=== PATIENT | male | born 1965 | race Caucasian/White ===

== ENCOUNTER 2019-08-15 15:17 | Inpatient (IN) | payer OTHER ==
[~2019-08-15] VITALS: Ht 182.9 cm; Wt 95.4 kg
[2019-08-15] MEDS ORDERED: SODIUM CHLORIDE 0.9% 1,000 ML IV ONE (15:52)
[2019-08-15] MEDS ORDERED: SODIUM CHLORIDE 0.9% 1,000ML IVBOLUS ONE ×2 (16:00→18:00)
[2019-08-15] MEDS ORDERED: SODIUM CHLORIDE FLUSH 10ML SYR IVF ONE (16:00)
[2019-08-15] MEDS ORDERED: ONDANSETRON 2MG/ML, 2ML IVPush ONE (16:00)
[2019-08-15] MEDS ORDERED: THIAMINE 100 MG in SODIUM CHLORIDE 0.9% 50 ML IVPB ONE (16:30)
[2019-08-15 16:32] LABS: ALBUMIN 3.7 g/dL (3.4-5.0); CALCIUM 8.9 mg/dL (8.5-10.1)
[2019-08-15] MEDS ORDERED: LORazepam 2 MG/ML, 1ML ONE ×6 (16:34→20:47)
[2019-08-15 16:36] LABS: ALANINE AMINOTRANSFERASE 233 U/L (12-78); ALKALINE PHOSPHATASE 298 U/L (45-117); BILIRUBIN,TOTAL 2.3 mg/dL (0.2-1.0); CREATININE 1.31 mg/dL (0.7-1.3); TOTAL PROTEIN 7.6 g/dL (6.4-8.2)
[2019-08-15 16:41] LABS: ANION GAP 21 mmol/L (5-15); CHLORIDE 96 mmol/L (98-107)
[2019-08-15] MEDS: LORazepam 2 MG/ML, 1ML IVPush PRN ×8 (16:45→19:35)
--- NOTE | 2019-08-15 16:52 | NUR ---
placed on seizure pads, increased tremors, Dr Tan @ bedside, states was ok to give 2mg of Ativan @ a time IV, placed on oxy mask, seizure precautions
--- NOTE | 2019-08-15 17:01 | NUR ---
seizure pads placed on bed, placed on 15l o2 mask, pt appears more calm, cool rag applied to forehead, IV thiamine initiated
[2019-08-15 17:05] LABS: MEAN CORPUSCULAR HEMOGLOBIN 32.3 pg (27.5-34.5); MEAN CORPUSCULAR HGB CONC 33.7 g/dL (33.2-36.2); MEAN CORPUSCULAR VOLUME 95.8 fL (81-97); MEAN PLATELET VOLUME 9.4 fL (7.4-10.4); PLATELET COUNT 176 x10^3/uL (130-400); RED BLOOD COUNT 4.52 x10^6/uL (4.38-5.82); RED CELL DISTRIBUTION WIDTH 18.1 % (9.4-14.8)
[2019-08-15 17:08] LABS: MD YES
--- NOTE | 2019-08-15 17:20 | NUR ---
TRANSPORTED TO TRAUMA ROOM, REPORT GIVEN TO BRUNA BRYSON, MEDICATED WITH ATIVAN 1MG PRIOR TO TRANSFER
[2019-08-15 17:36] LABS: LYMPH#(MANUAL) 0.07 x10^3/uL (1-3.4); LYMPHS% (MANUAL) 1 % (22-44); MONOS#(MANUAL) 0.43 x10^3/uL (0.3-2.7); MONOS% (MANUAL) 6 % (2-9); SEGS% (MANUAL) 93 % (42-75)
[2019-08-15 17:37] LABS: <PLATELET ESTIMATE> ADEQUATE; <PLT MORPHOLOGY> NORMAL PLT MORPH; ANISOCYTOSIS 1+
--- NOTE | 2019-08-15 17:39 | NUR ---
LATE ENTRY FOR 1714. PT MOVED TO TRAUMA ROOM3 FROM 24, SBAR RPT REC'D AND PT CARE ASSUMED. PT INCONTINENT OF LIQUID BROWN STOOL AT SOMETIME TODAY, DRIED STOOL CLEANED FROM BART AREA AND ALL DOWN HIS LEGS. CLEAN LINNENS PLACED AND CLEAN GOWN. PT WITH INCREASED TREMMORS WITH ANY ACTIVITY OR STIMULATION BUT TREMMORS DECREASE ONCE STIMULI IS REMOVED. PT ON ALL MONITORS AND PULSE OX 95-99%, 02 DECREASED FROM 10L OXYMASK TO 6L OXY MASK. PT TOLLERATING. TP BELONIGINGS PLACED IN BELONGINGS BAG. (GLASSES, WALLET, KEYS, NECKLACE, RING, CELL PHONE ALL PLACED IN SEPERATE BAG WHICH WAS THEN PLACED IN THE BAG WITH HIS SOILED CLOTHES. PT HAS EARING IN EACH LOBE WHICH I LEFT IN PLACE) PT IS VERY PLEASANT AND COOPERATIVE. POC DISCUSSED AND QUESTIONS ANSWERED.
[2019-08-15 17:53] LABS: INTERNATIONAL NORMALIZED RATIO 1.06 (0.93-1.1); PROTHROMBIN TIME 11.2 Seconds (9.6-11.5)
--- NOTE | 2019-08-15 18:10 | NUR ---
PT CIWA SCORE = 18, MEDICATED WITH 1MG ATIVAN WITH EFFECT.
--- NOTE | 2019-08-15 18:25 | NUR ---
DR GARCIA AT BEDSIDE, PT ASSESSMENT REVIEWED. RESP EVEN NON-LABORED AND PT MAINTIANING SP02 GREATER THAN 94% ON 6L OXY MASK. AT THIS TIME PLAN FOR PT TO ADMIT TO [facility] ON CIWA PROTOCOL
[2019-08-15] MEDS ORDERED: SODIUM CHLORIDE FLUSH 10ML SYR IVF PRN (18:30)
--- NOTE | 2019-08-15 18:59 | NUR ---
Pt bedside report from Jumana rn. This rn to assume care of pt. Pt resting comfortably on gurney. Moderate visible tremors noted. Pt c/o tactile stimulation/hallucinations. States itchiness on face "it kind of feels like something is crawling on my skin." Has a moderate RICK. Skin PWD octavio. A+Ox4. IV NS infusing appropriately according to emar. All monitoring remains intact. Pt htn and tachycardic, aware and this is baseline from admit to ed tonight. Pt given 1 mg ativan per day shift rn at shift change. WCTM pt condition.
--- NOTE | 2019-08-15 19:19 | NUR ---
Hospitalist at bedside.
[2019-08-15] MEDS ORDERED: LACTATED RINGERS 1,000 ML IV SCH (19:30)
[2019-08-15] MEDS ORDERED: morphine SULFATE 10 MG/ML, 1ML IVPush PRN (19:30)
[2019-08-15] MEDS ORDERED: PROMETHAZINE 25 MG/ML, 1ML IM PRN (19:30)
[2019-08-15] MEDS ORDERED: ONDANSETRON 2MG/ML, 2ML IV PRN (19:30)
[2019-08-15] MEDS ORDERED: DIAZEPAM 10 MG TABLET PO SCH (19:30)
[2019-08-15] MEDS ORDERED: LORazepam 1MG TABLET PO PRN ×3 (19:30)
[2019-08-15] MEDS ORDERED: LORazepam 2 MG/ML, 1ML IV PRN ×3 (19:30)
[2019-08-15] MEDS ORDERED: FOLIC ACID 5 MG/ML IM ONE (19:30)
--- NOTE | 2019-08-15 19:38 | NUR ---
Pt given more ativan for increasing anxiety and acutely increased tremors. Pt immediately reactive to ativan and appears more comfortable.
--- NOTE | 2019-08-15 20:11 | NUR ---
Pt states needing to go to the rr. Offered bedpan and refused. Adamant on trying bedside commode. This rn attempted to assist pt to commode. Pt at side of bed w/ severe tremors and unable to bear weight due to tremors. Pt not tx to bedside commode. Offered bedpan again and refused at this time.
[2019-08-15] MEDS ORDERED: HEPARIN 5,000 UNITS/ML, 1ML ONE (20:16)
[2019-08-15] MEDS: LORazepam 2 MG/ML, 1ML IV PRN (20:50)
--- NOTE | 2019-08-15 20:51 | NUR ---
CIWA of 18 obtained and given 3 mg ativan per ciwa protocol. PT has severe tremors and anxious. "i just need to get up, i cant lay down anymore." tactile hallucinations mildly increased and black worse. Ativan gave immediate effect. Awaiting valium from rx.
[2019-08-15] MEDS: MAGNESIUM CHLORIDE 64 MG TABLET.DR PO SCH (21:00)
[2019-08-15] MEDS: DIAZEPAM 5 MG TABLET PO SCH (21:09)
[2019-08-15] MEDS: HEPARIN 5,000 UNITS/ML, 1ML SQ SCH (21:10)
--- NOTE | 2019-08-15 21:10 | NUR ---
Pt much more comfortable and states feeling better after ativan admin. Given valium per mar. WCT closely monitor for adverse effects.
[2019-08-15] MEDS ORDERED: SODIUM PHOSPHATE 10 MMOL in SODIUM CHLORIDE 0.9% 500 ML IV ONE (21:30)
[2019-08-15] MEDS ORDERED: MAGNESIUM SULFATE PMX 2GM/50ML 50 ML IV ONE (21:30)
--- NOTE | 2019-08-15 21:48 | NUR ---
HR sustaining in high 110's to low 120's, sleeping comfortably on gurney. moderate tremors still noted.
[2019-08-15 22:37] VITALS: BP 154/103
[2019-08-16] MEDS: LACTULOSE 20 GM/30 ML UDC PO SCH ×3 (00:16→21:27)
[2019-08-16] MEDS: MAGNESIUM CHLORIDE 64 MG TABLET.DR PO SCH ×4 (00:16→21:28)
[2019-08-16] MEDS: LORazepam 2 MG/ML, 1ML IV PRN (00:27)
[2019-08-16 01:16] VITALS: BP 156/98
[2019-08-16 01:31] LABS: CULTURE INDICATED? YES; MICROSCOPIC INDICATED
[2019-08-16 01:39] LABS: AMPHETAMINE SCREEN, URINE Negative (Negative); BARBITURATE SCREEN, URINE Negative (Negative); BENZODIAZEPINE SCREEN, URINE Positive (Negative); CANNABINOID SCREEN, URINE Negative (Negative); COCAINE SCREEN, URINE Negative (Negative); METHADONE SCREEN, URINE Negative (Negative); OPIATE SCREEN, URINE Negative (Negative)
[2019-08-16] MEDS: HEPARIN 5,000 UNITS/ML, 1ML SQ SCH ×3 (03:30→21:28)
[2019-08-16] MEDS: DIAZEPAM 5 MG TABLET PO SCH ×2 (03:30→08:15)
[2019-08-16 05:58] LABS: CHLORIDE 103 mmol/L (98-107); MEAN CORPUSCULAR HEMOGLOBIN 32.3 pg (27.5-34.5); MEAN CORPUSCULAR HGB CONC 33.2 g/dL (33.2-36.2); MEAN CORPUSCULAR VOLUME 97.2 fL (81-97); MEAN PLATELET VOLUME 8.8 fL (7.4-10.4); PLATELET COUNT 127 x10^3/uL (130-400); RED CELL DISTRIBUTION WIDTH 18.2 % (9.4-14.8)
[2019-08-16 06:09] LABS: ALANINE AMINOTRANSFERASE 188 U/L (12-78); ALBUMIN 3.1 g/dL (3.4-5.0); ALKALINE PHOSPHATASE 207 U/L (45-117); ANION GAP 8 mmol/L (5-15); BILIRUBIN,TOTAL 3.6 mg/dL (0.2-1.0); CALCIUM 7.9 mg/dL (8.5-10.1); CREATININE 0.75 mg/dL (0.7-1.3); TOTAL PROTEIN 6.2 g/dL (6.4-8.2)
[2019-08-16 06:23] LABS: BASOPHILS # (AUTO) 0.04 x10^3/uL (0-0.1); BASOPHILS % (AUTO) 1 % (0-1); EOSINOPHILS # (AUTO) 0.01 x10^3/uL (0-0.4); EOSINOPHILS % (AUTO) 0 % (1-7); LYMPHOCYTES # (AUTO) 0.86 x10^3/uL (1-3.4); LYMPHOCYTES % (AUTO) 19 % (22-44); MD SCAN; MONOCYTES # (AUTO) 0.61 x10^3/uL (0.2-0.8); MONOCYTES % (AUTO) 14 % (2-9); NEUTROPHILS # (AUTO) 2.93 x10^3/uL (1.8-6.8); NEUTROPHILS % (AUTO) 66 % (42-75)
[2019-08-16 07:51] VITALS: BP 154/107
[2019-08-16] MEDS: MULTIVITAMINS/MINERALS TABLET PO SCH (08:14)
[2019-08-16] MEDS: LACTATED RINGERS 1,000 ML IV SCH ×2 (08:19→18:42)
[2019-08-16 10:44] VITALS: BP 161/104
[2019-08-16] MEDS: LORazepam 0.5MG TABLET PO PRN (13:01)
[2019-08-16 13:20] VITALS: BP 164/107
[2019-08-16] MEDS ORDERED: DIAZEPAM 5 MG TABLET PO SCH (15:30)
[2019-08-16] MEDS: DIAZEPAM 10 MG TABLET PO SCH ×2 (15:54→21:28)
[2019-08-16] MEDS: LORazepam 1MG TABLET PO PRN (17:46)
[2019-08-16 18:05] VITALS: BP 154/97
[2019-08-16 19:09] VITALS: BP 153/95
[2019-08-17 02:37] VITALS: BP 163/97
[2019-08-17] MEDS: DIAZEPAM 10 MG TABLET PO SCH ×2 (04:00→07:45)
[2019-08-17] MEDS: LACTATED RINGERS 1,000 ML IV SCH ×3 (05:00→22:27)
[2019-08-17] MEDS: HEPARIN 5,000 UNITS/ML, 1ML SQ SCH ×3 (05:21→22:26)
[2019-08-17 05:33] LABS: BASOPHILS # (AUTO) 0.01 x10^3/uL (0-0.1); BASOPHILS % (AUTO) 0 % (0-1); EOSINOPHILS # (AUTO) 0.01 x10^3/uL (0-0.4); EOSINOPHILS % (AUTO) 0 % (1-7); LYMPHOCYTES # (AUTO) 0.75 x10^3/uL (1-3.4); LYMPHOCYTES % (AUTO) 19 % (22-44); MD NO; MEAN CORPUSCULAR HEMOGLOBIN 32.6 pg (27.5-34.5); MEAN CORPUSCULAR HGB CONC 34.2 g/dL (33.2-36.2); MEAN CORPUSCULAR VOLUME 95.4 fL (81-97); MEAN PLATELET VOLUME 9.3 fL (7.4-10.4); MONOCYTES # (AUTO) 0.37 x10^3/uL (0.2-0.8); MONOCYTES % (AUTO) 9 % (2-9); NEUTROPHILS % (AUTO) 71 % (42-75); PLATELET COUNT 130 x10^3/uL (130-400); RED BLOOD COUNT 3.71 x10^6/uL (4.38-5.82); RED CELL DISTRIBUTION WIDTH 17.8 % (9.4-14.8)
[2019-08-17 05:42] LABS: ALANINE AMINOTRANSFERASE 190 U/L (12-78); ALBUMIN 3.1 g/dL (3.4-5.0); ANION GAP 8 mmol/L (5-15); CALCIUM 8.4 mg/dL (8.5-10.1); CHLORIDE 101 mmol/L (98-107); CREATININE 0.63 mg/dL (0.7-1.3)
[2019-08-17 05:44] LABS: ALKALINE PHOSPHATASE 211 U/L (45-117); BILIRUBIN,TOTAL 3.6 mg/dL (0.2-1.0); TOTAL PROTEIN 6.3 g/dL (6.4-8.2)
[2019-08-17] MEDS: MAGNESIUM CHLORIDE 64 MG TABLET.DR PO SCH ×3 (07:45→20:31)
[2019-08-17] MEDS: THIAMINE 100 MG in DEXTROSE 5% 50 ML IVPB SCH (07:45)
[2019-08-17] MEDS: MULTIVITAMINS/MINERALS TABLET PO SCH (07:45)
[2019-08-17] MEDS: LACTULOSE 20 GM/30 ML UDC PO SCH ×2 (07:45→20:31)
[2019-08-17] MEDS: LORazepam 2 MG/ML, 1ML IV PRN ×3 (07:45→20:31)
[2019-08-17 08:38] VITALS: BP 148/101
[2019-08-17 13:12] VITALS: BP 151/104
[2019-08-17] MEDS: DIAZEPAM 5 MG TABLET PO SCH ×2 (15:48→22:26)
[2019-08-17 19:42] VITALS: BP 156/106
[2019-08-17] MEDS: CIPROFLOXACIN OPHTH SOLN 0.3%, 5ML EACHEYE SCH (20:31)
[2019-08-18] MEDS: LORazepam 2 MG/ML, 1ML IV PRN (00:26)
[2019-08-18] MEDS: CIPROFLOXACIN OPHTH SOLN 0.3%, 5ML EACHEYE SCH ×6 (00:27→20:01)
[2019-08-18 00:58] VITALS: BP 151/97
[2019-08-18 05:44] LABS: ALANINE AMINOTRANSFERASE 183 U/L (12-78); ALBUMIN 2.9 g/dL (3.4-5.0); ANION GAP 6 mmol/L (5-15); CHLORIDE 105 mmol/L (98-107)
[2019-08-18] MEDS: DIAZEPAM 5 MG TABLET PO SCH ×4 (05:44→21:46)
[2019-08-18] MEDS: HEPARIN 5,000 UNITS/ML, 1ML SQ SCH ×3 (05:44→21:46)
[2019-08-18 05:52] LABS: ALKALINE PHOSPHATASE 222 U/L (45-117); BILIRUBIN,TOTAL 3.1 mg/dL (0.2-1.0); CALCIUM 8.7 mg/dL (8.5-10.1); CHOL/HDL RATIO 17.1; CHOLESTEROL, TOTAL 256 mg/dL (140-239); CREATININE 0.58 mg/dL (0.7-1.3); HDL CHOL % 6 % (26-37); HDL CHOLESTEROL (DIRECT) 15 mg/dL (40-60); LDL CHOLESTEROL,CALCULATED 207 mg/dL (54-169); LDL/HDL RATIO 13.8 (0.5-3.0); TOTAL PROTEIN 6.1 g/dL (6.4-8.2); TRIGLYCERIDES 172 mg/dL (50-200); VLDL CHOLESTEROL 34 mg/dL (0-25)
[2019-08-18 06:26] VITALS: BP 153/99
[2019-08-18 06:30] LABS: BASOPHILS # (AUTO) 0.01 x10^3/uL (0-0.1); BASOPHILS % (AUTO) 0 % (0-1); EOSINOPHILS # (AUTO) 0.09 x10^3/uL (0-0.4); EOSINOPHILS % (AUTO) 2 % (1-7); LYMPHOCYTES # (AUTO) 0.97 x10^3/uL (1-3.4); LYMPHOCYTES % (AUTO) 25 % (22-44); MD NO; MEAN CORPUSCULAR HEMOGLOBIN 32.5 pg (27.5-34.5); MEAN CORPUSCULAR HGB CONC 33.5 g/dL (33.2-36.2); MEAN CORPUSCULAR VOLUME 96.9 fL (81-97); MEAN PLATELET VOLUME 8.8 fL (7.4-10.4); MONOCYTES # (AUTO) 0.46 x10^3/uL (0.2-0.8); MONOCYTES % (AUTO) 12 % (2-9); NEUTROPHILS # (AUTO) 2.35 x10^3/uL (1.8-6.8); NEUTROPHILS % (AUTO) 61 % (42-75); PLATELET COUNT 151 x10^3/uL (130-400); RED BLOOD COUNT 3.77 x10^6/uL (4.38-5.82); RED CELL DISTRIBUTION WIDTH 17.8 % (9.4-14.8)
[2019-08-18] MEDS: MAGNESIUM CHLORIDE 64 MG TABLET.DR PO SCH ×2 (08:17→15:41)
[2019-08-18] MEDS: LACTULOSE 20 GM/30 ML UDC PO SCH ×2 (08:18→20:01)
[2019-08-18] MEDS: FOLIC ACID 1 MG TABLET PO SCH (08:18)
[2019-08-18] MEDS: MULTIVITAMINS/MINERALS TABLET PO SCH (08:18)
[2019-08-18] MEDS: LACTATED RINGERS 1,000 ML IV SCH (08:20)
[2019-08-18] MEDS: LORazepam 0.5MG TABLET PO PRN (08:20)
[2019-08-18 08:37] VITALS: BP 155/108
--- NOTE | 2019-08-18 09:01 | NUR ---
REC: JARETTO pending PUNEET this am Addendum: 08/18/19 at 0902 by Rose MERAZ Amended: Links added.
[2019-08-18] MEDS: THIAMINE 100 MG in DEXTROSE 5% 50 ML IVPB SCH (09:02)
[2019-08-18] MEDS ORDERED: ALBU18HF INH (10:28)
--- NOTE | 2019-08-18 11:26 | NUR ---
REC: Advance to regular diet with thin liquids when cleared by MD Addendum: 08/18/19 at 1127 by Rose MERAZ Amended: Links added.
[2019-08-18] MEDS: LORazepam 1MG TABLET PO PRN ×3 (12:20→23:00)
[2019-08-18 12:28] VITALS: BP 152/106
[2019-08-18 18:33] VITALS: BP 148/97
[2019-08-18] MEDS: LISINOPRIL 5 MG TABLET PO SCH (20:01)
[2019-08-18] MEDS ORDERED: OMNIPAQUE 350 MG/ML, 100ML BOTTLE ONE (22:22)
[2019-08-19] VITALS (13 sets, daily range): BP systolic 122–159; BP diastolic 83–105
[2019-08-19] MEDS: LORazepam 2 MG/ML, 1ML IV PRN (01:59)
[2019-08-19] MEDS: CIPROFLOXACIN OPHTH SOLN 0.3%, 5ML EACHEYE SCH ×6 (01:59→20:36)
--- NOTE | 2019-08-19 02:45 | NUR ---
MEG ACUNA - Fall Risk Medication(s) present and receiving anticoagulants.
[2019-08-19] MEDS: DIAZEPAM 5 MG TABLET PO SCH ×2 (03:30→09:20)
[2019-08-19] MEDS: HEPARIN 5,000 UNITS/ML, 1ML SQ SCH ×3 (05:54→20:36)
[2019-08-19 06:22] LABS: ALBUMIN 3.1 g/dL (3.4-5.0); CHLORIDE 104 mmol/L (98-107)
[2019-08-19 06:26] LABS: ALANINE AMINOTRANSFERASE 193 U/L (12-78); ALKALINE PHOSPHATASE 238 U/L (45-117); ANION GAP 8 mmol/L (5-15); BILIRUBIN,TOTAL 2.5 mg/dL (0.2-1.0); CALCIUM 8.6 mg/dL (8.5-10.1); CREATININE 0.67 mg/dL (0.7-1.3); TOTAL PROTEIN 6.3 g/dL (6.4-8.2)
[2019-08-19 06:40] LABS: BASOPHILS # (AUTO) 0.04 x10^3/uL (0-0.1); BASOPHILS % (AUTO) 1 % (0-1); EOSINOPHILS # (AUTO) 0.05 x10^3/uL (0-0.4); EOSINOPHILS % (AUTO) 1 % (1-7); LYMPHOCYTES # (AUTO) 1.05 x10^3/uL (1-3.4); LYMPHOCYTES % (AUTO) 28 % (22-44); MD NO; MEAN CORPUSCULAR HEMOGLOBIN 32.6 pg (27.5-34.5); MEAN CORPUSCULAR HGB CONC 33.6 g/dL (33.2-36.2); MEAN CORPUSCULAR VOLUME 97.1 fL (81-97); MEAN PLATELET VOLUME 8.9 fL (7.4-10.4); MONOCYTES # (AUTO) 0.63 x10^3/uL (0.2-0.8); MONOCYTES % (AUTO) 17 % (2-9); NEUTROPHILS % (AUTO) 53 % (42-75); PLATELET COUNT 187 x10^3/uL (130-400); RED BLOOD COUNT 3.86 x10^6/uL (4.38-5.82); RED CELL DISTRIBUTION WIDTH 18.5 % (9.4-14.8)
[2019-08-19] MEDS ORDERED: POTASSIUM CHLORIDE 10% 40 MEQ/30 ML UDC PO ONE (07:30)
[2019-08-19] MEDS ORDERED: POTASSIUM CHLORIDE 20 MEQ PACKET ONE (09:16)
[2019-08-19] MEDS: LISINOPRIL 5 MG TABLET PO SCH ×2 (09:20→20:36)
[2019-08-19] MEDS: MULTIVITAMINS/MINERALS TABLET PO SCH (09:20)
[2019-08-19] MEDS: LACTULOSE 20 GM/30 ML UDC PO SCH ×2 (09:20→20:36)
[2019-08-19] MEDS: LORazepam 1MG TABLET PO PRN ×2 (09:20→16:04)
[2019-08-19] MEDS: FOLIC ACID 1 MG TABLET PO SCH (09:20)
[2019-08-19] MEDS: THIAMINE 100 MG in DEXTROSE 5% 50 ML IVPB SCH (09:20)
[2019-08-19] MEDS: LORazepam 0.5MG TABLET PO PRN ×2 (09:28→12:43)
[2019-08-20 00:15] VITALS: BP 158/105
[2019-08-20] MEDS: CIPROFLOXACIN OPHTH SOLN 0.3%, 5ML EACHEYE SCH ×6 (00:27→21:24)
[2019-08-20] MEDS: HEPARIN 5,000 UNITS/ML, 1ML SQ SCH ×3 (04:43→21:24)
[2019-08-20 05:34] LABS: BASOPHILS # (AUTO) 0.02 x10^3/uL (0-0.1); BASOPHILS % (AUTO) 1 % (0-1); EOSINOPHILS % (AUTO) 3 % (1-7); LYMPHOCYTES # (AUTO) 1.16 x10^3/uL (1-3.4); LYMPHOCYTES % (AUTO) 30 % (22-44); MD NO; MEAN CORPUSCULAR HEMOGLOBIN 32.3 pg (27.5-34.5); MEAN CORPUSCULAR HGB CONC 33.7 g/dL (33.2-36.2); MEAN PLATELET VOLUME 8.9 fL (7.4-10.4); MONOCYTES # (AUTO) 0.76 x10^3/uL (0.2-0.8); MONOCYTES % (AUTO) 19 % (2-9); NEUTROPHILS # (AUTO) 1.88 x10^3/uL (1.8-6.8); NEUTROPHILS % (AUTO) 48 % (42-75); PLATELET COUNT 205 x10^3/uL (130-400); RED BLOOD COUNT 3.82 x10^6/uL (4.38-5.82); RED CELL DISTRIBUTION WIDTH 18.1 % (9.4-14.8)
[2019-08-20 05:44] LABS: ALBUMIN 2.8 g/dL (3.4-5.0); ANION GAP 6 mmol/L (5-15); CALCIUM 8.3 mg/dL (8.5-10.1); CHLORIDE 104 mmol/L (98-107)
[2019-08-20 05:49] LABS: ALANINE AMINOTRANSFERASE 186 U/L (12-78); ALKALINE PHOSPHATASE 231 U/L (45-117); BILIRUBIN,TOTAL 1.9 mg/dL (0.2-1.0); TOTAL PROTEIN 6.1 g/dL (6.4-8.2)
[2019-08-20 07:24] VITALS: BP 156/105
[2019-08-20] MEDS: THIAMINE 100 MG in DEXTROSE 5% 50 ML IVPB SCH (08:04)
[2019-08-20] MEDS: LISINOPRIL 5 MG TABLET PO SCH ×2 (08:04→21:24)
[2019-08-20] MEDS: POTASSIUM CHLORIDE 20 MEQ TAB.ER.PRT PO SCH (08:04)
[2019-08-20] MEDS: MULTIVITAMINS/MINERALS TABLET PO SCH (08:04)
[2019-08-20] MEDS: FOLIC ACID 1 MG TABLET PO SCH (08:04)
[2019-08-20] MEDS: LACTULOSE 20 GM/30 ML UDC PO SCH ×2 (08:04→21:24)
[2019-08-20] MEDS: POTASSIUM CHLORIDE 20 MEQ PACKET PO SCH ×2 (08:05→21:24)
[2019-08-20] MEDS: LORazepam 0.5MG TABLET PO PRN (10:51)
[2019-08-20 13:31] VITALS: BP 136/91
[2019-08-20 18:41] VITALS: BP 148/106
[2019-08-20 21:28] VITALS: BP 160/106
[2019-08-21] MEDS: CIPROFLOXACIN OPHTH SOLN 0.3%, 5ML EACHEYE SCH ×6 (01:28→21:56)
[2019-08-21 02:12] VITALS: BP 141/93
[2019-08-21] MEDS: HEPARIN 5,000 UNITS/ML, 1ML SQ SCH ×3 (04:54→20:06)
[2019-08-21 06:46] VITALS: BP 166/98
[2019-08-21] MEDS: LACTULOSE 20 GM/30 ML UDC PO SCH ×2 (09:00→20:06)
[2019-08-21] MEDS: POTASSIUM CHLORIDE 20 MEQ TAB.ER.PRT PO SCH (09:00)
[2019-08-21] MEDS: POTASSIUM CHLORIDE 20 MEQ PACKET PO SCH ×2 (09:20→20:07)
[2019-08-21] MEDS: THIAMINE 100 MG in DEXTROSE 5% 50 ML IVPB SCH (09:20)
[2019-08-21] MEDS: LISINOPRIL 5 MG TABLET PO SCH ×2 (09:21→20:07)
[2019-08-21] MEDS: MULTIVITAMINS/MINERALS TABLET PO SCH (09:21)
[2019-08-21] MEDS: FOLIC ACID 1 MG TABLET PO SCH (09:21)
[2019-08-21 12:30] VITALS: BP 139/95
[2019-08-21 20:04] VITALS: BP 144/106
[2019-08-22] MEDS: CIPROFLOXACIN OPHTH SOLN 0.3%, 5ML EACHEYE SCH ×6 (01:30→19:47)
[2019-08-22 02:03] VITALS: BP 152/97
[2019-08-22] MEDS: HEPARIN 5,000 UNITS/ML, 1ML SQ SCH ×3 (06:26→19:46)
[2019-08-22] MEDS: POTASSIUM CHLORIDE 10% 40 MEQ/30 ML UDC PO SCH ×2 (07:00→09:00)
[2019-08-22] MEDS: FOLIC ACID 1 MG TABLET PO SCH (07:47)
[2019-08-22] MEDS: LACTULOSE 20 GM/30 ML UDC PO SCH ×2 (07:47→19:46)
[2019-08-22] MEDS: MULTIVITAMINS/MINERALS TABLET PO SCH (07:47)
[2019-08-22] MEDS: POTASSIUM CHLORIDE 20 MEQ TAB.ER.PRT PO SCH (07:47)
[2019-08-22] MEDS: LISINOPRIL 5 MG TABLET PO SCH ×2 (07:47→19:46)
[2019-08-22] MEDS: POTASSIUM CHLORIDE 20 MEQ PACKET PO SCH ×2 (07:52→07:53)
[2019-08-22 08:22] LABS: ANION GAP 4 mmol/L (5-15); CHLORIDE 106 mmol/L (98-107); CREATININE 0.84 mg/dL (0.7-1.3)
[2019-08-22 08:24] VITALS: BP 151/94
[2019-08-22] MEDS: THIAMINE 100 MG in DEXTROSE 5% 50 ML IVPB SCH (09:05)
[2019-08-22 12:55] VITALS: BP 135/89
[2019-08-22] MEDS: LORazepam 1MG TABLET PO PRN (13:49)
[2019-08-22 19:41] VITALS: BP 161/105
[2019-08-22 19:45] VITALS: BP 143/96
[2019-08-23] MEDS: CIPROFLOXACIN OPHTH SOLN 0.3%, 5ML EACHEYE SCH ×6 (00:30→20:30)
[2019-08-23 01:26] VITALS: BP 148/94
[2019-08-23] MEDS: HEPARIN 5,000 UNITS/ML, 1ML SQ SCH ×3 (05:00→20:45)
[2019-08-23 08:22] VITALS: BP 142/90
[2019-08-23] MEDS: LACTULOSE 20 GM/30 ML UDC PO SCH ×2 (09:55→20:35)
[2019-08-23] MEDS: LISINOPRIL 5 MG TABLET PO SCH ×2 (09:56→20:35)
[2019-08-23] MEDS: THIAMINE 100MG TABLET PO SCH (09:56)
[2019-08-23] MEDS: FOLIC ACID 1 MG TABLET PO SCH (09:57)
[2019-08-23] MEDS: MULTIVITAMINS/MINERALS TABLET PO SCH (09:57)
[2019-08-23 13:02] VITALS: BP 128/84
[2019-08-23] MEDS ORDERED: LISI5TAB7 PO (14:34)
[2019-08-23] MEDS ORDERED: MULT-484 PO (14:34)
[2019-08-23 20:05] VITALS: BP_SYST 124; BP_SYST 142; BP_DIAS 85; BP_DIAS 90
[2019-08-23 20:34] VITALS: BP 148/87
[2019-08-23] MEDS: POTASSIUM CHLORIDE 10% 40 MEQ/30 ML UDC PO SCH (20:35)
[2019-08-24 00:11] VITALS: BP 150/96
[2019-08-24] MEDS: CIPROFLOXACIN OPHTH SOLN 0.3%, 5ML EACHEYE SCH ×4 (00:30→12:30)
[2019-08-24] MEDS: HEPARIN 5,000 UNITS/ML, 1ML SQ SCH ×2 (04:38→13:00)
[2019-08-24 07:10] VITALS: BP 143/89
[2019-08-24] MEDS: THIAMINE 100MG TABLET PO SCH (09:00)
[2019-08-24] MEDS: FOLIC ACID 1 MG TABLET PO SCH (09:25)
[2019-08-24] MEDS: POTASSIUM CHLORIDE 10% 40 MEQ/30 ML UDC PO SCH (09:26)
[2019-08-24] MEDS: LISINOPRIL 5 MG TABLET PO SCH (09:26)
[2019-08-24] MEDS: MULTIVITAMINS/MINERALS TABLET PO SCH (09:26)
[2019-08-24] MEDS: LACTULOSE 20 GM/30 ML UDC PO SCH (09:27)
[2019-08-24 13:20] VITALS: BP 129/89
== END 2019-08-24 15:06 | disposition home or self-care (01) | DRG 432 ==
LOC: ED 17:10 → EDIP 18:23 → 4EST 22:23
PROVIDERS: ADMIT Family Medicine; ATTEND Internal Medicine
DX: K70.10 Alcoholic hepatitis without ascites (principal); G93.41 Metabolic encephalopathy; J96.01 Acute respiratory failure with hypoxia; K85.20 Alcohol induced acute pancreatitis without necrosis or infection; F10.239 Alcohol dependence with withdrawal, unspecified; F10.288 Alcohol dependence with other alcohol-induced disorder; N17.9 Acute kidney failure, unspecified; E83.39 Other disorders of phosphorus metabolism; E83.42 Hypomagnesemia; E87.6 Hypokalemia; K76.0 Fatty (change of) liver, not elsewhere classified
CPT/HCPCS: 36415; 71045; 74177; 74230; 76700; 80048; 80053; 80061; 80074; 80307; 81001; 82140; 82150; 82962; 83690; 83735; 84100; 84443; 85025; 85610; 85730; 87086; 93005; 96374; 96375; 96376; 99291; G0378; J1644; J3411; Q9967; J2060; J3475; J7030; J7040; J7120

== ENCOUNTER → 2019-10-06 | Outpatient (CLI) | payer OTHER ==
[~2019-10-06] MED LIST: ALBU18HF INH; LISI5TAB7 PO; MULT-484 PO
[2019-10-06 13:01] LABS: BASOPHILS # (AUTO) 0.04 x10^3/uL (0-0.1); BASOPHILS % (AUTO) 1 % (0-1); EOSINOPHILS # (AUTO) 0.08 x10^3/uL (0-0.4); EOSINOPHILS % (AUTO) 2 % (1-7); LYMPHOCYTES # (AUTO) 1.49 x10^3/uL (1-3.4); LYMPHOCYTES % (AUTO) 37 % (22-44); MD NO; MEAN CORPUSCULAR HEMOGLOBIN 31.8 pg (27.5-34.5); MEAN CORPUSCULAR VOLUME 96.5 fL (81-97); MEAN PLATELET VOLUME 8.9 fL (7.4-10.4); MONOCYTES # (AUTO) 0.47 x10^3/uL (0.2-0.8); MONOCYTES % (AUTO) 12 % (2-9); NEUTROPHILS # (AUTO) 1.92 x10^3/uL (1.8-6.8); NEUTROPHILS % (AUTO) 48 % (42-75); PLATELET COUNT 322 x10^3/uL (130-400); RED BLOOD COUNT 4.56 x10^6/uL (4.38-5.82); RED CELL DISTRIBUTION WIDTH 12.5 % (9.4-14.8)
[2019-10-06 13:04] LABS: ALANINE AMINOTRANSFERASE 36 U/L (12-78); ANION GAP 6 mmol/L (5-15); CALCIUM 9.5 mg/dL (8.5-10.1); CHLORIDE 106 mmol/L (98-107); CREATININE 1.04 mg/dL (0.7-1.3)
[2019-10-06 13:10] LABS: ALKALINE PHOSPHATASE 59 U/L (45-117); BILIRUBIN,TOTAL 0.8 mg/dL (0.2-1.0); CHOL/HDL RATIO 2.1; CHOLESTEROL, TOTAL 164 mg/dL (140-239); HDL CHOL % 48 % (26-37); HDL CHOLESTEROL (DIRECT) 78 mg/dL (40-60); LDL CHOLESTEROL,CALCULATED 75 mg/dL (54-169); TRIGLYCERIDES 55 mg/dL (50-200); VLDL CHOLESTEROL 11 mg/dL (0-25)
== END | disposition home or self-care (01) ==
LOC: CFH 09:57
PROVIDERS: ATTEND Family Medicine
DX: Z13.220 Encounter for screening for lipoid disorders (principal); Z13.1 Encounter for screening for diabetes mellitus; R04.0 Epistaxis; K70.10 Alcoholic hepatitis without ascites; K85.90 Acute pancreatitis without necrosis or infection, unspecified
CPT/HCPCS: 36415; 80053; 80061; 82150; 83036; 83690; 85025

== ENCOUNTER → 2020-01-05 | Outpatient (CLI) | payer OTHER ==
[2020-01-05 10:13] LABS: ALANINE AMINOTRANSFERASE 31 U/L (12-78); ALBUMIN 4.3 g/dL (3.4-5.0); ANION GAP 5 mmol/L (5-15); CALCIUM 9.7 mg/dL (8.5-10.1); CHLORIDE 107 mmol/L (98-107)
[2020-01-05 10:16] LABS: ALKALINE PHOSPHATASE 60 U/L (45-117); BILIRUBIN,TOTAL 1.2 mg/dL (0.2-1.0); CHOL/HDL RATIO 2.3; CHOLESTEROL, TOTAL 190 mg/dL (140-239); HDL CHOL % 43 % (26-37); HDL CHOLESTEROL (DIRECT) 82 mg/dL (40-60); LDL CHOLESTEROL,CALCULATED 98 mg/dL (54-169); LDL/HDL RATIO 1.2 (0.5-3.0); TOTAL PROTEIN 7.5 g/dL (6.4-8.2); TRIGLYCERIDES 51 mg/dL (50-200); VLDL CHOLESTEROL 10 mg/dL (0-25)
== END | disposition home or self-care (01) ==
LOC: LAB 09:37
PROVIDERS: ATTEND Family Medicine
DX: I10 Essential (primary) hypertension (principal)
CPT/HCPCS: 36415; 80053; 80061; 82043

== ENCOUNTER → 2021-01-21 | Outpatient (CLI) | payer OTHER ==
[2021-01-21 08:30] LABS: ALANINE AMINOTRANSFERASE 29 U/L (12-78); ALBUMIN 4.1 g/dL (3.4-5.0); CALCIUM 8.9 mg/dL (8.5-10.1); CHOLESTEROL, TOTAL 167 mg/dL (140-239); CREATININE 0.95 mg/dL (0.7-1.3); TRIGLYCERIDES 47 mg/dL (50-200); VLDL CHOLESTEROL 9 mg/dL (0-25)
[2021-01-21 08:36] LABS: ALKALINE PHOSPHATASE 53 U/L (45-117); BILIRUBIN,TOTAL 0.9 mg/dL (0.2-1.0); CHOL/HDL RATIO 2.2; HDL CHOL % 46 % (26-37); HDL CHOLESTEROL (DIRECT) 76 mg/dL (40-60); LDL CHOLESTEROL,CALCULATED 82 mg/dL (54-169); LDL/HDL RATIO 1.1 (0.5-3.0)
[2021-01-21 08:45] LABS: BASOPHILS % (AUTO) 1 % (0-1); CHLORIDE 105 mmol/L (98-107); EOSINOPHILS % (AUTO) 3 % (1-7); LYMPHOCYTES % (AUTO) 41 % (22-44); MEAN CORPUSCULAR HEMOGLOBIN 29.3 pg (27.5-34.5); MEAN CORPUSCULAR HGB CONC 33.7 g/dL (33.2-36.2); MONOCYTES % (AUTO) 11 % (2-9); NEUTROPHILS % (AUTO) 44 % (42-75); PLATELET COUNT 307 x10^3/uL (130-400); RED BLOOD COUNT 4.93 x10^6/uL (4.38-5.82); RED CELL DISTRIBUTION WIDTH 13.4 % (9.4-14.8)
[2021-01-21 08:55] LABS: ANION GAP 5 mmol/L (5-15)
== END | disposition home or self-care (01) ==
LOC: LAB 08:01
PROVIDERS: ATTEND Family Medicine
DX: Z12.5 Encounter for screening for malignant neoplasm of prostate (principal); R73.9 Hyperglycemia, unspecified; I10 Essential (primary) hypertension; Z79.899 Other long term (current) drug therapy
CPT/HCPCS: 36415; 80053; 80061; 83036; 84153; 85025; 86735; 86762; 86765; G0103